=== PATIENT | female | born 1985 | race Two or more races ===

== ENCOUNTER → 2017-06-24 | Outpatient (REF) | payer OTHER ==
[2017-06-24 21:25] LABS: CHLAMYDIA DNA AMPLIFICATION NEGATIVE (NEGATIVE); GC DNA AMPLIFICATION NEGATIVE (NEGATIVE)
== END ==
LOC: M SFHCLERA 15:30
DX: R11.0 Nausea (principal)

== ENCOUNTER → 2017-07-20 | Outpatient (REF) | payer OTHER | LOC: M SFHCLERA 10:48 | DX: R30.0 Dysuria (principal) ==

== ENCOUNTER → 2017-07-22 | Outpatient (REF) | payer OTHER ==
[2017-07-22 20:33] LABS: INFLUENZA A AMPLIFICATION NEGATIVE (NEGATIVE); INFLUENZA B AMPLIFICATION NEGATIVE (NEGATIVE)
== END ==
LOC: M SFHCLERA 15:29
DX: Z01.89 Encounter for other specified special examinations (principal); R11.0 Nausea; M54.2 Cervicalgia; R51 Headache

== ENCOUNTER → 2017-08-11 | Outpatient (REF) | payer OTHER | LOC: M SFHCLERA 11:46 | DX: J02.9 Acute pharyngitis, unspecified (principal) ==

== ENCOUNTER → 2017-11-05 | Outpatient (REF) | payer OTHER | LOC: M SFHCLERA 12:44 | DX: J02.9 Acute pharyngitis, unspecified (principal) ==

== ENCOUNTER → 2018-03-14 | Outpatient (REF) | payer OTHER ==
[2018-03-14 14:07] LABS: APPEARANCE, URINE CLEAR (CLEAR); BACTERIA, URINE AUTO 1+ (NEGATIVE); BILIRUBIN, URINE AUTO NEGATIVE (NEGATIVE); BLOOD, URINE BLOOD NEGATIVE (NEGATIVE); COLOR, URINE STRAW (YELLOW); GLUCOSE, URINE (UA) AUTO NEGATIVE (NEGATIVE); KETONE, URINE AUTO NEGATIVE (NEGATIVE); LEUKOCYTE ESTERASE, URINE AUTO NEGATIVE (NEGATIVE); NITRITE, URINE AUTO NEGATIVE (NEGATIVE); PROTEIN, URINE AUTO NEGATIVE (NEGATIVE); RBC, URINE AUTO 0 /HPF (0-3); SPECIFIC GRAVITY URINE AUTO 1.004 (1.002-1.035); SQUAMOUS EPITHELIAL CELL UR AU 1 /HPF (0-6); UROBILINOGEN, URINE AUTO 0.2 mg/dL (0.0-2.0); WBC, URINE AUTO 0 /HPF (0-3)
== END ==
LOC: M SMT 13:42
DX: R39.15 Urgency of urination (principal)

== ENCOUNTER → 2018-04-26 | Outpatient (REF) | payer OTHER ==
[2018-04-26 15:50] LABS: BACTERIA, URINE AUTO 1+ (NEGATIVE); RBC, URINE AUTO 0 /HPF (0-3); SQUAMOUS EPITHELIAL CELL UR AU 0 /HPF (0-6); WBC, URINE AUTO 0 /HPF (0-3)
[2018-04-30 10:09] LABS: H PYLORI STOOL ANTIGEN Negative (Negative)
== END ==
LOC: M LAB REF 13:21
DX: K58.0 Irritable bowel syndrome with diarrhea (principal); R11.2 Nausea with vomiting, unspecified; R39.89 Other symptoms and signs involving the genitourinary system
CPT/HCPCS: 81015

== ENCOUNTER → 2018-07-30 | Outpatient (REF) | payer OTHER ==
[2018-07-30 18:03] LABS: BACTERIA, URINE AUTO NEGATIVE (NEGATIVE); RBC, URINE AUTO 0 /HPF (0-3); SQUAMOUS EPITHELIAL CELL UR AU 0 /HPF (0-6); WBC, URINE AUTO 0 /HPF (0-3)
== END ==
LOC: M SMT 17:01
PROVIDERS: ATTEND Specialist
DX: R39.15 Urgency of urination (principal)

== ENCOUNTER → 2018-10-18 | Outpatient (CLI) | payer OTHER ==
[~2018-10-18] MED LIST: METHACHOLINE KIT (J7674) INH ONE
--- NOTE | 2018-10-18 15:16 | PFTRPT ---
Site: [facility], [address] [place], [address] ID: [id number] Name: ELVIRA DOBSON Visit Date: 10/18/2018 Second ID: [id number] Referring Doctor: Sydnie Parson Reviewing Doctor: Davidson Purvis MD Machine Milker: Melany CHARLES RRT Age: 32 : 1985 Sex: Female Race: Height: 65.00 Inches Weight: 210.00 Lbs BSA: 2.02 Order IDs: [id number] Requested Test(s): <RESP-PFT.METH CHAL> Diagnosis: R06.02 of albuterol for postbronchodilator. Review Status: Not Reviewed Pre-Bronch Post-Bronch Pred Actual %Pred Actual %Chng SPIROMETRY FVC (L) 3.89 4.70 120 4.55 -3 FEV1 (L) 3.25 3.75 115 3.73 FEV1/FVC (%) 84 80 95 82 2 FEF 25% (L/sec) 5.76 7.66 133 6.68 -12 FEF 50% (L/sec) 4.44 4.35 97 5.36 23 FEF 75% (L/sec) 1.86 1.42 76 1.32 -6 FEF 25-75% (L/sec) 3.46 3.54 102 3.60 1 FEF Max (L/sec) 7.16 8.10 113 6.96 -14 FIVC (L) 4.55 4.05 -11 FIF 50% (L/sec) 4.30 5.36 124 3.65 -31 FIF Max (L/sec) 5.39 4.28 -20 Expiratory Time (sec) 6.53 6.81 4 Back Extrap Vol (L) 0.13 0.12 -9 Time To FEFmax (sec) 0.087 0.118 36
== END ==
LOC: M CARPUL 10:49
PROVIDERS: ATTEND Nurse Practitioner Adult Health
DX: R06.02 Shortness of breath (principal)
CPT/HCPCS: 94070; J7674

== ENCOUNTER → 2019-05-17 | Outpatient (REF) | payer OTHER | LOC: M SFHCLERA 18:39 | PROVIDERS: ATTEND Nurse Practitioner Family | DX: R35.0 Frequency of micturition (principal) | CPT/HCPCS: 81002; 81025; 87086; 87880; G0463 ==